=== PATIENT | male | born 2000 | race Caucasian/White ===

== ENCOUNTER 2024-07-24 10:25 | Emergency (ER) | payer OTHER, MEDICAID, SELFPAY ==
[2024-07-24 10:26] VITALS: BP 171/99; PULSE 88; RESP 16; TEMP 36.8; O2SAT 100; BMI 27.6
--- NOTE | 2024-07-24 10:46 | EDS_ITS ---
HPI History of Present Illness Chief Complaint: Head Injury Informant: patient Narrative Narrative: Patient injured his face days ago he was working on a car and states that he pulled the door off very forcefully and let go and the hinge struck him in the left worship area. He states a dazed and a little but otherwise he was okay and he has had no major pain, headaches, nausea or vomiting, or vision changes. He sees bruising around his eye now although it does not hurt so he presents for evaluation. PFSH PFSH Medical History no medical history no medical history Home Medications ?Medication ?Instructions ?Recorded ?Last Taken ?Type NK 07/24/24 Unknown History Allergy/AdvReac Type Severity Reaction Status Date / Time No Known Allergies Allergy Verified 07/24/24 10:26 Social History Smoking Status: Never smoker ROS ROS ED Constitutional Constitutional ED: Denies chills or fever(s) Eyes Eyes: Denies blurry vision, change in vision or diplopia ENT ENT ED: Denies ear pain, epistaxis, facial pain or rhinorrhea Cardiovascular Cardiovascular: Denies chest pain or palpitations Respiratory/Chest Respiratory/Chest: Denies cough or dyspnea Gastrointestinal Gastrointestinal: Denies abdominal pain, diarrhea, melena, nausea or vomiting Genitourinary Genitourinary ED: Denies dysuria or hematuria Musculoskeletal Musculoskeletal: Denies back pain, extremity pain or neck pain Integumentary Denies abscess, Abrasions, laceration or rash Neurologic Neurologic: Denies confusion, headache(s), paresthesias or weakness EXAM Physical Exam Const Vital Signs: 07/24/24 10:25 07/24/24 10:26 Temperature 98.3 F Temperature Source Oral Pulse Rate 88 Respiratory Rate 16 Respiratory Effort Normal Non-Labored Respiratory Depth Normal Respiratory Pattern Normal Blood Pressure 171/99 H Blood Pressure Mean 123 Pulse Ox 100 Oxygen Delivery Method Room Air Room Air Positive well nourished and well developed General Appearance ED: well developed and NAD HEENT Reports TM's clear and nasal mucous membranes and turbinates normal HEENT Narrative: There is some ecchymosis in the left maxilla near the medial canthus of the eye. There is no tenderness here or throughout the maxilla or the zygomatic arch or the nose or the superior orbital brim or temporal area. There is also some old er appearing ecchymosis in the lateral aspect of the superior eyelid none of this is tender. There is no enophthalmos or proptosis. No Reid sign. No rhinorrhea or epistaxis. No periorbital ecchymosis on the right. There is no hemotympanum or CSF otorhinorrhea. atraumatic Face and Sinus: Negative for facial tenderness Tympanic Membrane ED: Yes TM's clear Eyes PERRL and EOMs intact bilaterally Visual Acuity: other Other Details: no entrapment or pain with extraocular movements no evidence of globe trauma. Neck full ROM and supple General: Negative for tenderness Chest Wall inspection of chest normal Resp normal respiratory effort Back/Spine normal ROM Extremity normal to inspection and full ROM Neuro oriented x3, CN's II-XII intact bilaterally, moves all extremities, no focal motor deficits and no sensory deficits noted Andreas Coma Scale: document GCS findings Spontaneous Obeys Commands Oriented 15 Sensorium / Orientation: awake and alert Psych mental status grossly normal and thought process normal Skin no wounds Lesions: no lesions Rashes: no rashes MDM MDM MDM Narrative Medical decision making narrative: I do not think this is periorbital ecchymosis to suggest a basilar skull fracture. I think this is simply a facial contusion and the blood is layering around the orbit because of the location of where he was struck. He is asymptomatic. Given this, and my findings, he passes the [place] head CT trauma rule and I do not think he has a facial fracture that requires imaging either. Reassured, since he is having no pain he does not need to use ice or take any medications but we discussed symptoms to return for. Discharge Plan Triage Chief Complaint: Head Injury ED Provider: Pritesh Tomlin Dx/Rx/DC Orders Clinical Impression: Contusion of face Instructions: ED Facial Contusion Prescriptions: No Action NK Referrals: Doctor,Your [Non-Staff] - As Needed Activity Restrictions/Additional Instructions: If you have any trouble with your vision or moving your eye and feeling significant discomfort or nausea/vomiting with headache, return to the ER. Print Language: [place]an Disposition Disposition: Home, Self Care
[2024-07-24 11:09] VITALS: BP 162/92; PULSE 84; RESP 16; TEMP 37.2; O2SAT 98
== END 2024-07-24 11:29 | disposition home or self-care (01) ==
LOC: ED 11:16
PROVIDERS: Emergency Provider Emergency Medicine; Visit Provider Emergency Medicine
DX: S00.83XA Contusion of other part of head, initial encounter (principal); X58.XXXA Exposure to other specified factors, initial encounter
CPT/HCPCS: 99282

== ENCOUNTER → 2025-07-05 | Outpatient (CLI) | payer OTHER, MEDICAID, SELFPAY ==
[2025-07-05 17:38] LABS: Hematocrit 45.0 % (40-54); Hemoglobin 15.3 g/dL (13.0-16.5); Immature Granulocytes Count 0.010 X10^3/uL (0.0-0.0); Mean Corp Hgb Conc 34.0 g/dL (32-36); Mean Corpuscular Volume 91.3 fL (80-94); Mean Platelet Vol. 10.7 fl (6.2-12.0); NRBC Flagged by Analyzer 0 % (0-5); Platelet Count 270 K/mm3 (150-450); RBC Distribution Width CV 11.9 % (11.6-14.6); RBC Distribution Width SD 39.6 fl (35.1-43.9); Red Blood Count 4.93 M/mm3 (4.6-6.2); White Blood Count 6.0 K/mm3 (4.4-11.0)
[2025-07-05 18:22] LABS: BUN 13 mg/dL (4-19); BUN/Creat Ratio 15.4 RATIO (10-20); Calcium,Total 9.6 mg/dL (7.6-11.0); Cholesterol 161 mg/dL (<=190); Glucose 90 mg/dL (70-99); Triglycerides 103 mg/dL
[2025-07-05 18:23] LABS: Anion Gap 10 (5-15); Carbon Dioxide 28.0 mmol/L (21.0-32.0); Chloride 102 mmol/L (98-108); Low Density Lipoprotein Calc. 100 mg/dL; Potassium 3.8 mmol/L (3.3-5.1); Very Low Density Lipoprotein 21 mg/dL (5-40); cholesterol:hdl ratio screen 3.85
[2025-07-05 19:07] LABS: Barbiturate Urine NEGATIVE (< 200 ng/mL); Benzodiazepine Urine NEGATIVE (< 200 ng/mL); PCP Urine NEGATIVE (< 25 ng/mL); THC Urine NEGATIVE (< 50 ng/mL)
== END | disposition home or self-care (01) ==
LOC: MTLAB 15:23
PROVIDERS: PCP Family Medicine; Referring Provider Family Medicine; Visit Provider Family Medicine
DX: Z00.00 Encounter for general adult medical examination without abnormal findings (principal); R41.3 Other amnesia; R41.82 Altered mental status, unspecified
CPT/HCPCS: 36415; 80048; 80061; 80307; 84443; 85025

== ENCOUNTER → 2025-07-16 | Outpatient (CLI) | payer OTHER, MEDICAID, SELFPAY ==
--- NOTE | 2025-07-16 18:47 | CT_ITS ---
PROCEDURE: BRAIN/HEAD WITHOUT CONTRAST 07/16/2025 REASON FOR EXAM: CHANGE IN MENTAL STATUS TECHNIQUE: Procedure Code: CTBR Modality: CT Procedure: BRAIN/HEAD WITHOUT CONTRAST Coronal and Sagittal reconstruction series were provided. One or more dose reduction techniques were used (e.g., Automated exposure control, adjustment of the mA and/or kV according to patient size, use of iterative reconstruction technique. RADIATION DOSE SUMMARY: CTDlvol: 44.99 mGy DLP: 880.47 mGycm COMPARISON: None. FINDINGS: BRAIN: No acute intraparenchymal hemorrhage. No mass lesion. No CT evidence for acute territorial infarct. No midline shift or extra-axial collection. VENTRICLES: No hydrocephalus. ORBITS: The orbits are unremarkable. SINUSES AND MASTOIDS: The paranasal sinuses and mastoid air cells are clear. SOFT TISSUES: No acute abnormality seen. BONES: No acute osseous abnormality seen. OTHER: Soft tissue density within the external auditory canals bilaterally, likely cerumen. CT/Brain/Head without Contrast IMPRESSION: No acute intracranial abnormality. Reading Location: [id number]
--- OUTSIDE RECORDS SUMMARY | 2025-07-16 18:48 | XMS RPT_ITS | CCD ---
Author Organization [facility] Care Team Providers Care Guide Plant Name Role Phone Pritesh Tomlin Attending [facility] Care Physician, No Primary Primary Care Unava ilable Problems Problem Classification Problem Date Documented Da te Episodic/Chronic Other injuries and conditions due to external causes (1 source) Unspecified injury of head, initial encounter; Translations: [Unspecified injury of head, initial encounter] Onset: 08-24-2024 Episodic Results Test Name Value Interpretation Reference Range Facil ity Emergency Department Summary on 07-24-2024 Emergency Department Summary [facility] Medical Records Department [address] [place] [address] Emergency Department Summary 07/24/24 MR#: [id number] Acct: [id number] Name: SAMUEL LINDO Rep #: [id number] : 2000 23 From: Pritesh Tomlin MD PCP: Status:PRE ER Location: ED HPI History of Present Illness Chief Complaint: Head Injury Informant: patient Narrative Narrative: Patient injured his face days ago he was working on a car and states that he pulled the door off very forcefully and let go and the hinge struck him in the left taoism area. He states a dazed and a little but otherwise he was okay and he has had no major pain, headaches, nausea or vomiting, or vision changes. He sees bruising around his eye now although it does not hurt so he presents for evaluation. PFSH PFSH Medical History no medical history no medical history Home Medications ???Medication ???Instructions ???Recorded ???Last Taken ???Type NK 07/24/24 Unknown History Allergy/AdvReac Type Severity Reaction Status Date / Time No Known Allergies Allergy Verified 07/24/24 10:26 Social History Smoking Status: Never smoker ROS ROS ED Constitutional Constitutional ED: Denies chills or fever(s) Eyes Eyes: Denies blurry vision, change in vision or diplopia ENT ENT ED: Denies ear pain, epistaxis, facial pain or rhinorrhea Cardiovascular Cardiovascular: Denies chest pain or palpitations Respiratory/Chest Respiratory/Chest: Denies cough or dyspnea Gastrointestinal Gastrointestinal: Denies abdominal pain, diarrhea, melena, nausea or vomiting Genitourinary Genitourinary ED: Denies dysuria or hematuria Musculoskeletal Musculoskeletal: Denies back pain, extremity pain or neck pain Integumentary Denies abscess, Abrasions, laceration or rash Neurologic Neurologic: Denies confusion, headache(s), paresthesias or weakness EXAM Physical Exam Const Vital Signs: 07/24/24 10:25 07/24/24 10:26 Temperature 98.3 F Temperature Source Oral Pulse Rate 88 Respiratory Rate 16 Respiratory Effort Normal Non-Labored Respiratory Depth Normal Respiratory Pattern Normal Blood Pressure 171/99 H Blood Pressure Mean 123 Pulse Ox 100 Oxygen Delivery Method Room Air Room Air Positive well nourished and well developed General Appearance ED: well developed and NAD HEENT Reports TM's clear and nasal mucous membranes and turbinates normal HEENT Narrative: There is some ecchymosis in the left maxilla near the medial canthus of the eye. There is no tenderness here or throughout the maxilla or the zygomatic arch or the nose or the superior orbital brim or temporal area. There is also some older appearing ecchymosis in the lateral aspect of the superior eyelid none of this is tender. There is no enophthalmos or proptosis. No Reid sign. No rhinorrhea or epistaxis. No periorbital ecchymosis on the right. There is no hemotympanum or CSF otorhinorrhea. atraumatic Face and Sinus: Negative for facial tenderness Tympanic Membrane ED: Yes TM's clear Eyes PERRL and EOMs intact bilaterally Visual Acuity: other Other Details: no entrapment or pain with extraocular movements no evidence of globe trauma. Neck full ROM and supple General: Negative for tenderness Chest Wall inspection of chest normal Resp normal respiratory effort Back/Spine normal ROM Extremity normal to inspection and full ROM Neuro oriented x3, CN's II-XII intact bilaterally, moves all extremities, no focal motor deficits and no sensory deficits noted [place] Coma Scale: document GCS findings Spontaneous Obeys Commands Oriented 15 Sensorium / Orientation: awake and alert Psych mental status grossly normal and thought process normal Skin no wounds Lesions: no lesions Rashes: no rashes MDM MDM MDM Narrative Medical decision making narrative: I do not think this is periorbital ecchymosis to suggest a basilar skull fracture. I think this is simply a facial contusion and the blood is layering around the orbit because of the location of where he was struck. He is asymptomatic. Given this, and my findings, he passes the [place] head CT trauma rule and I do not think he has a facial fracture that requires imaging either. Reassured, since he is having no pain he does not need to use ice or take any medications but we discussed symptoms to return for. Discharge Plan Triage Chief Complaint: Head Injury ED Provider: Pritesh Tomlin Dx/Rx/DC Orders Clinical Impression: Contusion of face Instructions: ED Facial Contusion Prescriptions: No Action NK Referrals: Doctor,Your [Non-Staff] - As Needed Activity Restrictions/Additio nal Instructions: If you have any trouble with your vision or movi (more content not included)... Normal [facility] Encounters Encounter Date Encounter Type Care Provider Facility Start: 07-24-2024 End: 07-24-2024 Emergency department patient visit Pritesh Sada Facility:[facility] Payers Date Payer Category Payer Self-pay 2024 Unknown [id number] 2024 Unknown [id number] Unknown [id number] Summary Purpose Family History No Family History Records Found Advance Directives No Advanced Directives Records Found Additional Source Comments (unrecognized sect ion and content) No Status Records Found INFORMATION SOURCE (unrecogn ized section and content) DATE CREATED AUTHOR 08/27/2024 [facility] FOR RECORDS PERTAINING TO PATIENTS WHO ARE OR HAVE BEEN ENROLLED IN A CHEMICAL DEPENDENCY/SUBSTANCEABUSE PROGRAM, SOME INFORMATION MAY BE OMITTED. This clinical summary was aggregated from multiple sources. Caution should be exercised in using it in the provision of clinical care. This summary normalizes information from multiple sources, and as a consequence, information in this document may materially change the coding, format and clinical context of patient data. In addition, data may be omitted in some cases. CLINICAL DECISIONS SHOULD BE BASED ON THE PRIMARY CLINICAL RECORDS. [id number] [facility]. provides no warranty or guarantee of the accuracy or completeness of information in this document.
== END | disposition home or self-care (01) ==
LOC: CT 18:46
PROVIDERS: PCP Family Medicine; Referring Provider Family Medicine; Visit Provider Family Medicine
DX: R41.82 Altered mental status, unspecified (principal)
CPT/HCPCS: 70450